=== PATIENT | female | born 1940 | race Caucasian/White ===

== ENCOUNTER 2016-11-26 08:46 | Outpatient (CLI) | payer MEDICARE, OTHER | END 2016-11-26 23:59 | disposition home or self-care (01) | LOC: RAD 08:46 | PROVIDERS: ATTEND Internal Medicine Cardiovascular Disease | DX: Z01.810 Encounter for preprocedural cardiovascular examination (principal); I50.32 Chronic diastolic (congestive) heart failure | CPT/HCPCS: 78452; A9502; J2785 ==

== ENCOUNTER 2022-06-04 21:25 | Emergency (ER) | payer BC, MEDICARE, OTHER ==
[~2022-06-04] VITALS: Ht 152.4 cm; Wt 74.8 kg
[2022-06-04] MEDS ORDERED: OXYMETAZOLINE HCL NASAL SPRAY 30 ML BOTTLE NS ONE ×2 (22:13→22:30)
--- NOTE | 2022-06-04 22:13 | NUR ---
C/O NOSEBLEED X 1HR, STATES TRIED PICKING ON THE NOSE AND BEEN BLEEDING. DENEIS BLOOD THINNERS. TO BED 2. NASAL CLIP APPLIED. A/OX4. MONITOR APPLIED.
[2022-06-04] MEDS ORDERED: TRANEXAMIC ACID 1,000 MG/10 ML VIAL ONE (23:35)
[2022-06-05] MEDS ORDERED: TRANEXAMIC ACID 1,000 MG/10 ML VIAL IR ONE
--- NOTE | 2022-06-05 00:35 | NUR ---
Patient does not wish to proceed with medical care recommended by Dr. Stiles. Patient given information related to possible complications, up to and including , which could occur as a result of leaving the hospital at this time. Patient verbalizes understanding of risks involved due to leaving against medical advice. Patient has signed AMA form.
[2022-06-05 00:36] VITALS: BP 145/90
== END 2022-06-05 00:36 | disposition home or self-care (01) ==
LOC: ER 21:26
DX: R04.0 Epistaxis (principal)

== ENCOUNTER 2022-11-02 11:32 | Inpatient (IN) | payer BC ==
[~2022-11-02] VITALS: Ht 154.9 cm; Wt 56.2 kg
[2022-11-02] MEDS ORDERED: IV NS 0.9% 1,000 ML BAG IV ONE ×2 (12:30→13:30)
[2022-11-02] MEDS ORDERED: MONT10TA22 PO (12:53)
[2022-11-02] MEDS ORDERED: DULO60CA64 PO (12:53)
[2022-11-02] MEDS ORDERED: OLME40TA18 PO (12:53)
[2022-11-02] MEDS ORDERED: CLON1PAT13 TP (12:53)
[2022-11-02] MEDS ORDERED: PANT40TA49 PO (12:53)
[2022-11-02 13:22] LABS: BASOPHILS % (AUTO) 0.2 % (0.0-2.0); EOSINOPHILS % (AUTO) 0.4 % (0.0-6.0); HEMATOCRIT 44 % (33-45); HEMOGLOBIN 14.9 g/dL (11.5-14.8); LYMPHOCYTES # (AUTO) 1.6 K/uL (0.8-4.8); LYMPHOCYTES % (AUTO) 17.1 % (20.0-44.0); MEAN CORPUSCULAR HEMOGLOBIN 27 PG (26.0-33.0); MEAN CORPUSCULAR HGB CONC 34 g/dl (31.0-36.0); MEAN CORPUSCULAR VOLUME 79 fL (82-100); MONOCYTES # (AUTO) 0.7 K/uL (0.1-1.30); MONOCYTES % (AUTO) 7.3 % (2.0-12.0); PLATELET COUNT (AUTO) 396 K/uL (150-450); RED BLOOD CELL COUNT(AUTO) 5.55 MIL/uL (4.0-5.2); RED CELL DISTRIBUTION WIDTH 13.6 % (11.5-15.0); WHITE BLOOD COUNT (AUTO) 9.3 K/uL (4.3-11.0)
[2022-11-02 13:26] LABS: SERUM AMMONIA 11 umol/L (11-32)
[2022-11-02 13:27] LABS: CALCIUM, SERUM 9.6 mg/dL (8.5-10.1); CARBON DIOXIDE 32 mmol/L (21-32); CHLORIDE 85 mmol/L (98-107); CREATININE 1.1 mg/dL (0.6-1.3); GLUCOSE 139 mg/dL (74-106); INR 1.03 (0.91-1.10); POTASSIUM 2.9 mmol/L (3.5-5.1); PROTHROMBIN TIME 10.8 SECS (9.2-11.1); SODIUM SERUM 125 mmol/L (136-145); UREA NITROGEN, BLOOD 26 mg/dL (7-18)
[2022-11-02 13:33] LABS: ALANINE AMINOTRANSFERASE 25 U/L (12-78); ALBUMIN 4.2 g/dL (3.4-5.0); ALKALINE PHOSPHATASE 148 U/L (46-116); ASPARTATE AMINOTRANSFERASE 37 U/L (15-37); BILIRUBIN,DIRECT 0.2 mg/dL (0.0-0.2); BILIRUBIN,TOTAL 0.8 mg/dL (0.2-1.0); TOTAL PROTEIN, SERUM 8.4 g/dL (6.4-8.2)
[2022-11-02 13:38] LABS: THYROID STIMULATING HORMONE 1.637 uIU/mL (0.358-3.74)
[2022-11-02] MEDS ORDERED: ASPI-1169 PO (13:39)
[2022-11-02] MEDS ORDERED: TERI2.4P SQ (13:39)
[2022-11-02 13:51] LABS: LACTIC ACID 2.6 mmol/L (0.4-2.0)
[2022-11-02 13:55] LABS: ACETAMINOPHEN 0 ug/ml (10-30); ALCOHOL, BLOOD < 3 mg/dL (0-10); SALICYLATE < 2.3 mg/dL (2.8-20.0)
[2022-11-02] MEDS ORDERED: IV PREMIX D5 1/2NS + KCL 1,000 ML IV ONE (14:00)
[2022-11-02 14:09] LABS: APPEARANCE,URINE CLEAR (CLEAR); BILIRUBIN,URINE NEGATIVE (NEGATIVE); BLOOD, URINE TRACE-INTA Ery/uL (NEGATIVE); COLOR,URINE YELLOW (YELLOW); KETONES,URINE 1+ mg/dL (NEGATIVE); LEUKOCYTE ESTERASE ,URINE NEGATIVE (NEGATIVE); NITRITE, URINE NEGATIVE (NEGATIVE); PROTEIN,URINE 2+ mg/dl (NEGATIVE); UGLUCOSE TRACE mg/dL (NEGATIVE); UROBILINOGEN,URINE 0.2 EU/dL (0.2)
[2022-11-02 14:17] LABS: AMPHETAMINE, URINE NEGATIVE (NEGATIVE); BARBITURATE, URINE NEGATIVE (NEGATIVE); BENZODIAZEPINE, URINE NEGATIVE (NEGATIVE); CANNABINOID, URINE NEGATIVE (NEGATIVE); COCCAINE, URINE NEGATIVE (NEGATIVE); OPIATE, URINE NEGATIVE (NEGATIVE); PHENCYCLIDINE SCREEN,URINE NEGATIVE (NEGATIVE)
[2022-11-02] MEDS ORDERED: ACETAMINOPHEN 325 MG TABLET PO PRN (14:30)
[2022-11-02 15:48] LABS: ADD URINE CULTURE NO; BACTERIA,URINE None seen /HPF (None Seen); SQUAMOUS EPITHELIAL CELL,UR 0-2 /HPF (None Seen); WBC,URINE 0-2 /HPF (0-3)
[2022-11-02] MEDS ORDERED: ENOXAPARIN SODIUM 30 MG/0.3 ML DISP.SYRIN SQ SCH (16:00)
[2022-11-02] MEDS: PANTOPRAZOLE 40 MG TABLET.DR PO SCH (16:30)
[2022-11-02] MEDS: IV NS 0.9% 1,000 ML IV SCH (16:51)
[2022-11-02 19:42] VITALS: BP 138/84; TEMP 97.5; O2SAT 91
[2022-11-02 20:00] VITALS: BP 156/89; TEMP 98; O2SAT 94
[2022-11-02 21:36] VITALS: BP 156/86; TEMP 98; O2SAT 94
[2022-11-02] MEDS: MORPHINE SULFATE INJ 2 MG/ML DISP.SYRIN IV PRN (22:12)
[2022-11-03] MEDS: MORPHINE SULFATE INJ 2 MG/ML DISP.SYRIN IV PRN ×2 (03:08→10:03)
[2022-11-03 03:49] VITALS: BP 162/83; TEMP 98.3; O2SAT 100
[2022-11-03] MEDS: IV NS 0.9% 1,000 ML IV SCH (04:08)
[2022-11-03 04:35] VITALS: BP 159/78; TEMP 98.4; O2SAT 98
[2022-11-03 06:27] LABS: BASOPHILS # (AUTO) 0.1 K/uL (0.0-0.2); BASOPHILS % (AUTO) 0.8 % (0.0-2.0); EOSINOPHILS # (AUTO) 0.3 K/uL (0.0-0.7); EOSINOPHILS % (AUTO) 3.8 % (0.0-6.0); HEMATOCRIT 37 % (33-45); LYMPHOCYTES # (AUTO) 2.5 K/uL (0.8-4.8); LYMPHOCYTES % (AUTO) 28.3 % (20.0-44.0); MEAN CORPUSCULAR HEMOGLOBIN 26 PG (26.0-33.0); MEAN CORPUSCULAR HGB CONC 32 g/dl (31.0-36.0); MEAN CORPUSCULAR VOLUME 81 fL (82-100); MONOCYTES # (AUTO) 0.8 K/uL (0.1-1.30); MONOCYTES % (AUTO) 8.9 % (2.0-12.0); NEUTROPHILS # (AUTO) 5.1 K/uL (1.8-8.9); NEUTROPHILS % (AUTO) 58.2 % (43.0-81.0); PLATELET COUNT (AUTO) 281 K/uL (150-450); RED BLOOD CELL COUNT(AUTO) 4.57 MIL/uL (4.0-5.2); RED CELL DISTRIBUTION WIDTH 13.6 % (11.5-15.0); WHITE BLOOD COUNT (AUTO) 8.7 K/uL (4.3-11.0)
[2022-11-03 06:51] LABS: ALBUMIN 3.1 g/dL (3.4-5.0); BILIRUBIN,TOTAL 0.7 mg/dL (0.2-1.0); CALCIUM, SERUM 8.6 mg/dL (8.5-10.1); CREATININE 0.6 mg/dL (0.6-1.3); PHOSPHORUS 2.3 mg/dL (2.5-4.9); POTASSIUM 3.2 mmol/L (3.5-5.1); TOTAL PROTEIN, SERUM 6.2 g/dL (6.4-8.2)
[2022-11-03 07:00] VITALS: BP 140/79; TEMP 97.9; O2SAT 96
[2022-11-03] MEDS: PANTOPRAZOLE 40 MG TABLET.DR PO SCH ×2 (07:30→15:45)
[2022-11-03] MEDS ORDERED: LOSARTAN POTASSIUM 50 MG TABLET PO SCH (09:00)
[2022-11-03] MEDS: MONTELUKAST SODIUM (10MG) 10 MG TABLET PO SCH (09:00)
[2022-11-03] MEDS: ASPIRIN 81 MG TAB.CHEW PO SCH (09:00)
[2022-11-03] MEDS: DULOXETINE HCL 30 MG CAPSULE.DR PO SCH (09:00)
[2022-11-03] MEDS ORDERED: POTASSIUM CHLORIDE 20 MEQ POWDER PACKET PO ONE (10:00)
[2022-11-03] MEDS ORDERED: POLY17PO4 PO (11:22)
[2022-11-03] MEDS ORDERED: L. R1CAP PO (11:22)
[2022-11-03] MEDS ORDERED: IPRA21SP NS (11:22)
[2022-11-03] MEDS ORDERED: SIMV-49 PO (11:22)
[2022-11-03] MEDS ORDERED: FLUC150T PO (11:22)
[2022-11-03] MEDS ORDERED: FISH1CAP16 PO (11:22)
[2022-11-03] MEDS ORDERED: CARB15DR56 EACHEYE (11:22)
[2022-11-03] MEDS ORDERED: HYDR-500 PO (11:22)
[2022-11-03] MEDS ORDERED: DOCU100C36 PO (11:22)
[2022-11-03] MEDS ORDERED: OXYC-133 PO (11:22)
[2022-11-03] MEDS ORDERED: BISA5TAB10 PO (11:22)
[2022-11-03] MEDS ORDERED: FEXO180T94 PO (11:22)
[2022-11-03] MEDS ORDERED: CHOL500052 PO (11:22)
[2022-11-03] MEDS ORDERED: LORA-259 PO (11:22)
[2022-11-03] MEDS ORDERED: MULT-754 PO (11:22)
[2022-11-03] MEDS ORDERED: PREG75CA PO (11:22)
[2022-11-03] MEDS ORDERED: L.AC1CAP6 PO (11:22)
[2022-11-03] MEDS ORDERED: SUCR1TAB PO (11:22)
[2022-11-03] MEDS ORDERED: ALPR0.25 PO (11:22)
[2022-11-03] MEDS ORDERED: IRON28TA4 PO (11:22)
[2022-11-03] MEDS ORDERED: MINERAL OIL EACHEYE (11:22)
[2022-11-03] MEDS ORDERED: METH5TAB2 PO (11:22)
[2022-11-03] MEDS ORDERED: Z GUARD REMEDY 4 OZ OINT TP PRN (12:00)
[2022-11-03] MEDS: ONDANSETRON HCL/PF 4 MG/2 ML VIAL IVP PRN (12:57)
[2022-11-03] MEDS: Z GUARD REMEDY 4 OZ OINT TP SCH (12:58)
[2022-11-03] MEDS: hydrALAZINE HCL IV 20 MG VIAL IV PRN (14:34)
[2022-11-03] MEDS: METHADONE HCL 10 MG TABLET PO SCH ×2 (15:22→23:37)
[2022-11-03] MEDS ORDERED: ALPRAZOLAM 0.25 MG TABLET PO PRN (15:30)
[2022-11-03 16:00] VITALS: BP 186/74; TEMP 99.1; O2SAT 97
[2022-11-03] MEDS ORDERED: NEUTRA PHOS 1 POWD.PACKET PO ONE (16:00)
[2022-11-03] MEDS: ALPRAZOLAM 0.25 MG TABLET PO PRN ×2 (16:07→23:04)
[2022-11-03 16:30] VITALS: BP 173/100; O2SAT 98
[2022-11-03] MEDS: ENOXAPARIN SODIUM 40 MG/0.4 ML DISP.SYRIN SQ SCH (17:54)
[2022-11-03 18:30] VITALS: BP 170/110; O2SAT 98
[2022-11-03] MEDS: LORAZEPAM 1 MG TABLET PO PRN (19:30)
[2022-11-03] MEDS ORDERED: oxyCODONE/APAP (5/325 MG) 1 UDTAB TABLET PO PRN (20:00)
[2022-11-03] MEDS ORDERED: DILTIAZEM HCL 25 MG IV IV ONE (20:30)
[2022-11-03] MEDS: PREGABALIN 25 MG CAPSULE PO SCH (20:30)
[2022-11-03] MEDS: oxyCODONE/APAP (5/325 MG) 1 UDTAB TABLET PO SCH (20:46)
[2022-11-03] MEDS ORDERED: PREGABALIN 25 MG CAPSULE PO SCH (21:00)
[2022-11-03] MEDS: IV NS 0.9% 1,000 ML IV PRN ×2 (21:22→23:11)
[2022-11-03] MEDS ORDERED: DILTIAZEM HCL IV 125 MG in IV NS 0.9% 100 ML IV PRN (23:00)
[2022-11-03] MEDS ORDERED: DILTIAZEM HCL 25 MG IV ONE ×2 (23:02→23:11)
[2022-11-03] MEDS: SIMVASTATIN 20 MG TABLET PO SCH (23:37)
[2022-11-04] VITALS: BP 145/90; TEMP 98.7; O2SAT 100
[2022-11-04] MEDS: hydrALAZINE HCL IV 20 MG VIAL IV PRN (01:20)
[2022-11-04] MEDS: MORPHINE SULFATE INJ 2 MG/ML DISP.SYRIN IV PRN (01:41)
[2022-11-04] MEDS: LORAZEPAM 1 MG TABLET PO PRN ×2 (02:10→22:02)
[2022-11-04 04:00] VITALS: BP 134/66; TEMP 98.4; O2SAT 99
[2022-11-04 08:00] VITALS: BP 163/84; TEMP 98.6; O2SAT 97
[2022-11-04] MEDS: PANTOPRAZOLE 40 MG TABLET.DR PO SCH ×2 (08:01→16:47)
[2022-11-04] MEDS: oxyCODONE/APAP (5/325 MG) 1 UDTAB TABLET PO SCH ×3 (08:01→16:52)
[2022-11-04] MEDS: PREGABALIN 25 MG CAPSULE PO SCH ×3 (08:01→16:55)
[2022-11-04] MEDS: LOSARTAN POTASSIUM 50 MG TABLET PO SCH ×3 (08:33→16:52)
[2022-11-04] MEDS: ASPIRIN 81 MG TAB.CHEW PO SCH (08:38)
[2022-11-04] MEDS: THERAHONEY GEL 1.5 OZ TUBE TP SCH (08:38)
[2022-11-04] MEDS: DULOXETINE HCL 30 MG CAPSULE.DR PO SCH (08:38)
[2022-11-04] MEDS: Z GUARD REMEDY 4 OZ OINT TP SCH (08:38)
[2022-11-04] MEDS: MONTELUKAST SODIUM (10MG) 10 MG TABLET PO SCH (08:39)
[2022-11-04] MEDS: METHADONE HCL 10 MG TABLET PO SCH ×3 (08:49→21:23)
[2022-11-04] MEDS ORDERED: METOPROLOL TARTRATE 25 MG TABLET PO SCH (09:00)
[2022-11-04] MEDS: ALPRAZOLAM 0.25 MG TABLET PO PRN (09:57)
[2022-11-04] MEDS: IV NS 0.9% 1,000 ML IV PRN (10:28)
[2022-11-04 11:15] LABS: CALCIUM, SERUM 9.2 mg/dL (8.5-10.1); CREATININE 0.6 mg/dL (0.6-1.3); MAGNESIUM 1.6 mg/dL (1.8-2.4); PHOSPHORUS 3.4 mg/dL (2.5-4.9); POTASSIUM 3.5 mmol/L (3.5-5.1)
[2022-11-04 11:45] LABS: THYROID STIMULATING HORMONE 1.813 uIU/mL (0.358-3.74); URIC ACID 2.9 mg/dL (2.6-7.2)
[2022-11-04 12:00] VITALS: BP 106/64; TEMP 98.6; O2SAT 98
[2022-11-04] MEDS ORDERED: IV D5/ 0.9% NACL 1,000 ML IV SCH (12:00)
[2022-11-04] MEDS: ENSURE ENLIVE CHOC 237 ML CAN PO SCH ×2 (15:00→17:21)
[2022-11-04 16:00] VITALS: BP 96/56; TEMP 97.7; O2SAT 97
[2022-11-04] MEDS: CARVEDILOL 12.5 MG TABLET PO SCH (16:47)
[2022-11-04] MEDS ORDERED: DULOXETINE HCL 30 MG CAPSULE.DR PO SCH (17:00)
[2022-11-04] MEDS: ENOXAPARIN SODIUM 40 MG/0.4 ML DISP.SYRIN SQ SCH (17:46)
[2022-11-04] MEDS: ONDANSETRON HCL/PF 4 MG/2 ML VIAL IVP PRN (18:11)
[2022-11-04] MEDS ORDERED: IV D5/ 0.9% NACL 1,000 ML IV PRN (18:42)
[2022-11-04] MEDS: MUPIROCIN OINT 2% 22 GM TUBE NS SCH (19:46)
[2022-11-04 20:00] VITALS: BP 105/65; TEMP 98.1; O2SAT 97
[2022-11-04] MEDS ORDERED: Magnesium 1GM/D5W 100ML PREMIX 100 ML IV SCH (21:00)
[2022-11-04] MEDS ORDERED: Magnesium 1GM/D5W 100ML PREMIX PIGGYBACK IV ONE (21:00)
[2022-11-04] MEDS: SIMVASTATIN 20 MG TABLET PO SCH (21:22)
[2022-11-04] MEDS ORDERED: MAGNESIUM HYDROXIDE 30 ML UDC PO PRN (23:00)
[2022-11-05] VITALS: BP 131/77; TEMP 98.2; O2SAT 95
[2022-11-05 04:00] VITALS: BP 145/81; TEMP 98; O2SAT 96
[2022-11-05] MEDS: MUPIROCIN OINT 2% 22 GM TUBE NS SCH (06:15)
[2022-11-05 07:24] LABS: BASOPHILS # (AUTO) 0.1 K/uL (0.0-0.2); BASOPHILS % (AUTO) 0.9 % (0.0-2.0); EOSINOPHILS # (AUTO) 0.3 K/uL (0.0-0.7); EOSINOPHILS % (AUTO) 3.1 % (0.0-6.0); HEMATOCRIT 35 % (33-45); HEMOGLOBIN 11.4 g/dL (11.5-14.8); LYMPHOCYTES # (AUTO) 2.5 K/uL (0.8-4.8); LYMPHOCYTES % (AUTO) 26.2 % (20.0-44.0); MEAN CORPUSCULAR HEMOGLOBIN 27 PG (26.0-33.0); MEAN CORPUSCULAR HGB CONC 33 g/dl (31.0-36.0); MEAN CORPUSCULAR VOLUME 81 fL (82-100); MONOCYTES # (AUTO) 0.8 K/uL (0.1-1.30); MONOCYTES % (AUTO) 7.9 % (2.0-12.0); NEUTROPHILS # (AUTO) 5.9 K/uL (1.8-8.9); NEUTROPHILS % (AUTO) 61.9 % (43.0-81.0); PLATELET COUNT (AUTO) 265 K/uL (150-450); RED CELL DISTRIBUTION WIDTH 13.4 % (11.5-15.0); WHITE BLOOD COUNT (AUTO) 9.6 K/uL (4.3-11.0)
[2022-11-05 07:43] LABS: ALANINE AMINOTRANSFERASE 17 U/L (12-78); ALBUMIN 2.8 g/dL (3.4-5.0); ALKALINE PHOSPHATASE 102 U/L (46-116); ASPARTATE AMINOTRANSFERASE 21 U/L (15-37); BILIRUBIN,TOTAL 0.7 mg/dL (0.2-1.0); CALCIUM, SERUM 8.2 mg/dL (8.5-10.1); CARBON DIOXIDE 27 mmol/L (21-32); CHLORIDE 93 mmol/L (98-107); CREATININE 0.6 mg/dL (0.6-1.3); GLUCOSE 122 mg/dL (74-106); MAGNESIUM 1.8 mg/dL (1.8-2.4); PHOSPHORUS 2.5 mg/dL (2.5-4.9); SODIUM SERUM 128 mmol/L (136-145); TOTAL PROTEIN, SERUM 5.6 g/dL (6.4-8.2); UREA NITROGEN, BLOOD 20 mg/dL (7-18)
[2022-11-05 08:00] VITALS: BP 137/63; TEMP 98; O2SAT 96
[2022-11-05] MEDS: PREGABALIN 25 MG CAPSULE PO SCH ×2 (08:51→12:03)
[2022-11-05] MEDS: ASPIRIN 81 MG TAB.CHEW PO SCH (08:51)
[2022-11-05 08:52] VITALS: BP 137/63
[2022-11-05] MEDS: DULOXETINE HCL 30 MG CAPSULE.DR PO SCH ×2 (08:52→09:00)
[2022-11-05] MEDS: LOSARTAN POTASSIUM 50 MG TABLET PO SCH (08:52)
[2022-11-05] MEDS: oxyCODONE/APAP (5/325 MG) 1 UDTAB TABLET PO SCH ×2 (08:52→12:03)
[2022-11-05] MEDS: CARVEDILOL 12.5 MG TABLET PO SCH (08:52)
[2022-11-05] MEDS: MONTELUKAST SODIUM (10MG) 10 MG TABLET PO SCH (08:52)
[2022-11-05] MEDS: ENSURE ENLIVE CHOC 237 ML CAN PO SCH (08:53)
[2022-11-05] MEDS: THERAHONEY GEL 1.5 OZ TUBE TP SCH (08:53)
[2022-11-05] MEDS: METHADONE HCL 10 MG TABLET PO SCH (08:53)
[2022-11-05] MEDS: Z GUARD REMEDY 4 OZ OINT TP SCH (08:53)
[2022-11-05] MEDS: PANTOPRAZOLE 40 MG TABLET.DR PO SCH (08:56)
[2022-11-05] MEDS ORDERED: POTASSIUM CHLORIDE 20 MEQ TAB.PRT.SR PO ONE (09:30)
[2022-11-05] MEDS ORDERED: BISACODYL SUPP (10 MG) 10 MG/SUPP.RECT SUPP.RECT RC PRN (09:30)
[2022-11-05] MEDS: POTASSIUM CL. PREMIX PERIPHER. 50 ML IV SCH ×2 (09:44→10:45)
[2022-11-05] MEDS ORDERED: DULO30CA2 PO (11:15)
== END 2022-11-05 12:54 | disposition home health service (06) | DRG 640 ==
LOC: ER 11:34 → TELE 15:28 → TELE1 11-03 22:28 → TELE-TD 11-03 22:50 → TELE1 11-04 09:44
PROVIDERS: ADMIT Internal Medicine
DX: E86.0 Dehydration (principal); I21.A1 Myocardial infarction type 2; D68.69 Other thrombophilia; N17.9 Acute kidney failure, unspecified; I48.91 Unspecified atrial fibrillation; E87.1 Hypo-osmolality and hyponatremia; E87.20 Acidosis, unspecified; E86.1 Hypovolemia; E87.6 Hypokalemia; I95.89 Other hypotension; M06.9 Rheumatoid arthritis, unspecified; R13.10 Dysphagia, unspecified; Z79.82 Long term (current) use of aspirin; R53.1 Weakness; I95.9 Hypotension, unspecified; I10 Essential (primary) hypertension; M20.62 Acquired deformities of toe(s), unspecified, left foot; M20.61 Acquired deformities of toe(s), unspecified, right foot; S81.802A Unspecified open wound, left lower leg, initial encounter; X58.XXXA Exposure to other specified factors, initial encounter; Y93.9 Activity, unspecified; Y92.009 Unspecified place in unspecified non-institutional (private) residence as the place of occurrence of the external cause; L85.9 Epidermal thickening, unspecified; M96.1 Postlaminectomy syndrome, not elsewhere classified; F43.22 Adjustment disorder with anxiety; I35.1 Nonrheumatic aortic (valve) insufficiency; S90.122A Contusion of left lesser toe(s) without damage to nail, initial encounter; S90.121A Contusion of right lesser toe(s) without damage to nail, initial encounter; D64.9 Anemia, unspecified; Z98.1 Arthrodesis status; M81.0 Age-related osteoporosis without current pathological fracture; K21.9 Gastro-esophageal reflux disease without esophagitis
CPT/HCPCS: 36415; 70450-TC; 71045-TC; 80048-TC; 80053-TC; 80076-TC; 81001; 82140-TC; 82533; 82962-TC; 83605-TC; 83735-TC; 84100-TC; 84443-TC; 84484-TC; 84550-TC; 85025-TC; 85730-TC; 87040-TC; 87081-TC; 87086-TC; 92526; 92611-TC; 93307-TC; 97110-TC; 97112-TC; 97530-TC; A4223; A4623; G0378; G0480; J0360; J1650; J2270; J2405; J3475; J3480; J3490; J7030; J7042; J7050

== ENCOUNTER 2022-12-29 14:19 | Inpatient (IN) | payer BC ==
[~2022-12-29] VITALS: Ht 152.4 cm; Wt 59.4 kg
[~2022-12-29 14:19] MED LIST: ALPR0.25 PO; ASPI-1169 PO; BISA5TAB10 PO; CARB15DR56 EACHEYE; CHOL500052 PO; DOCU100C36 PO; DULO30CA2 PO; FEXO180T94 PO; FISH1CAP16 PO; HYDR-500 PO; IPRA21SP NS; IRON28TA4 PO; L.AC1CAP6 PO; METH5TAB2 PO; MONT10TA22 PO; MULT-754 PO; OXYC-133 PO; PANT40TA49 PO; POLY17PO4 PO; PREG75CA PO; SIMV-49 PO; SUCR1TAB PO
[2022-12-29] MEDS ORDERED: ONDANSETRON HCL/PF 4 MG/2 ML VIAL IVP ONE (14:30)
[2022-12-29] MEDS ORDERED: IV NS 0.9% 500 ML BAG IV ONE (14:30)
[2022-12-29] MEDS ORDERED: MORPHINE SULFATE INJ 2 MG/ML DISP.SYRIN IV ONE ×2 (14:30→16:30)
[2022-12-29] MEDS ORDERED: ONDANSETRON HCL/PF 4 MG/2 ML VIAL ONE (14:34)
[2022-12-29] MEDS ORDERED: MORPHINE SULFATE INJ 4 MG/ML DISP.SYRIN ONE ×2 (14:35→16:29)
[2022-12-29 15:23] LABS: BASOPHILS # (AUTO) 0.1 K/uL (0.0-0.2); BASOPHILS % (AUTO) 0.7 % (0.0-2.0); EOSINOPHILS % (AUTO) 0.2 % (0.0-6.0); HEMATOCRIT 41 % (33-45); LYMPHOCYTES # (AUTO) 2.6 K/uL (0.8-4.8); LYMPHOCYTES % (AUTO) 19.3 % (20.0-44.0); MEAN CORPUSCULAR HEMOGLOBIN 27 PG (26.0-33.0); MEAN CORPUSCULAR HGB CONC 32 g/dl (31.0-36.0); MEAN CORPUSCULAR VOLUME 84 fL (82-100); MONOCYTES # (AUTO) 0.5 K/uL (0.1-1.30); MONOCYTES % (AUTO) 3.4 % (2.0-12.0); NEUTROPHILS # (AUTO) 10.2 K/uL (1.8-8.9); NEUTROPHILS % (AUTO) 76.4 % (43.0-81.0); PLATELET COUNT (AUTO) 358 K/uL (150-450); RED BLOOD CELL COUNT(AUTO) 4.82 MIL/uL (4.0-5.2); WHITE BLOOD COUNT (AUTO) 13.3 K/uL (4.3-11.0)
[2022-12-29 15:41] LABS: ALANINE AMINOTRANSFERASE 20 U/L (12-78); ALBUMIN 4.1 g/dL (3.4-5.0); ALKALINE PHOSPHATASE 144 U/L (46-116); ASPARTATE AMINOTRANSFERASE 18 U/L (15-37); BILIRUBIN,DIRECT 0.2 mg/dL (0.0-0.2); BILIRUBIN,TOTAL 0.5 mg/dL (0.2-1.0); CALCIUM, SERUM 9.8 mg/dL (8.5-10.1); CARBON DIOXIDE 16 mmol/L (21-32); CHLORIDE 92 mmol/L (98-107); CREATININE 0.9 mg/dL (0.6-1.3); GLUCOSE 317 mg/dL (74-106); LIPASE 41 U/L (16-77); SODIUM SERUM 130 mmol/L (136-145); TOTAL PROTEIN, SERUM 7.9 g/dL (6.4-8.2); UREA NITROGEN, BLOOD 7 mg/dL (7-18)
[2022-12-29 16:11] LABS: POTASSIUM 2.6 mmol/L (3.5-5.1)
[2022-12-29 16:23] LABS: APPEARANCE,URINE CLEAR (CLEAR); BILIRUBIN,URINE NEGATIVE (NEGATIVE); BLOOD, URINE NEGATIVE Ery/uL (NEGATIVE); COLOR,URINE YELLOW (YELLOW); KETONES,URINE 1+ mg/dL (NEGATIVE); LEUKOCYTE ESTERASE ,URINE NEGATIVE (NEGATIVE); NITRITE, URINE NEGATIVE (NEGATIVE); PH,URINE 7.5 (5.0-8.0); PROTEIN,URINE TRACE mg/dl (NEGATIVE); UGLUCOSE 2+ mg/dL (NEGATIVE); UROBILINOGEN,URINE 0.2 EU/dL (0.2)
[2022-12-29] MEDS ORDERED: POTASSIUM CL. PREMIX PERIPHER. 50 ML ONE ×2 (16:33→17:29)
[2022-12-29] MEDS: POTASSIUM CL. PREMIX PERIPHER. 50 ML IV SCH ×2 (16:43→17:31)
[2022-12-29] MEDS ORDERED: ONDA8TAB65 PO (16:52)
[2022-12-29] MEDS ORDERED: RIFA300C4 PO (16:52)
[2022-12-29] MEDS ORDERED: TERI2.4P SQ (16:52)
[2022-12-29] MEDS ORDERED: ERGO500093 PO (16:52)
[2022-12-29] MEDS ORDERED: PANTOPRAZOLE 40 MG VIAL IV ONE (17:30)
[2022-12-29] MEDS ORDERED: PANTOPRAZOLE 40 MG VIAL ONE (17:33)
[2022-12-29 17:52] LABS: ADD URINE CULTURE NO; BACTERIA,URINE None seen /HPF (None Seen); RBC,URINE 0-2 /HPF (0-2); SQUAMOUS EPITHELIAL CELL,UR 0-2 /HPF (None Seen); WBC,URINE 0-2 /HPF (0-3)
[2022-12-29] MEDS ORDERED: ACETAMINOPHEN 325 MG TABLET PO PRN (18:00)
[2022-12-29] MEDS ORDERED: POLYVINYL ALCOHOL 15 ML BOTTLE EACHEYE PRN (18:00)
[2022-12-29] MEDS ORDERED: Z GUARD REMEDY 4 OZ OINT TP PRN (18:00)
[2022-12-29] MEDS ORDERED: SUCRALFATE 1 G TABLET PO PRN (18:00)
[2022-12-29] MEDS ORDERED: IV NS 0.9% 1,000 ML IV PRN (18:00)
[2022-12-29] MEDS ORDERED: MAGNESIUM HYDROXIDE 30 ML UDC PO PRN ×3 (18:00→23:30)
[2022-12-29] MEDS ORDERED: MAG HYDROX/AL HYDROX/SIMETH 30 ML UDC PO PRN (18:00)
[2022-12-29] MEDS ORDERED: ERGOCALCIFEROL (VITAMIN D 2) 50,000 UNIT CAPSULE PO SCH (18:00)
[2022-12-29] MEDS: BISACODYL (5 MG) 5 MG TABLET.DR PO SCH (18:00)
[2022-12-29 20:00] VITALS: BP 203/103; TEMP 98.1; O2SAT 96
[2022-12-29] MEDS: oxyCODONE/APAP (5/325 MG) 1 UDTAB TABLET PO PRN (20:12)
[2022-12-29] MEDS: MONTELUKAST SODIUM (10MG) 10 MG TABLET PO SCH (22:00)
[2022-12-29] MEDS: SIMVASTATIN 20 MG TABLET PO SCH (22:00)
[2022-12-29] MEDS ORDERED: LORAZEPAM INJ 2 MG/ML VIAL IV ONE (23:00)
[2022-12-29] MEDS: MAG HYDROX/AL HYDROX/SIMETH 30 ML UDC PO PRN (23:21)
[2022-12-30] VITALS (7 sets, daily range): BP systolic 165–179; BP diastolic 82–96; TEMP 98.4–99.5; O2SAT 96–98
[2022-12-30] MEDS: MORPHINE SULFATE INJ 4 MG/ML DISP.SYRIN IV PRN ×5 (01:34→20:47)
[2022-12-30] MEDS: ONDANSETRON HCL/PF 4 MG/2 ML VIAL IVP PRN (02:06)
[2022-12-30] MEDS: oxyCODONE/APAP (5/325 MG) 1 UDTAB TABLET PO PRN ×2 (04:29→12:23)
[2022-12-30] MEDS: MAG HYDROX/AL HYDROX/SIMETH 30 ML UDC PO PRN ×5 (04:37→19:45)
[2022-12-30 07:42] LABS: BASOPHILS % (AUTO) 0.1 % (0.0-2.0); HEMATOCRIT 42 % (33-45); HEMOGLOBIN 13.4 g/dL (11.5-14.8); LYMPHOCYTES # (AUTO) 1.5 K/uL (0.8-4.8); LYMPHOCYTES % (AUTO) 10.8 % (20.0-44.0); MEAN CORPUSCULAR HEMOGLOBIN 27 PG (26.0-33.0); MEAN CORPUSCULAR HGB CONC 32 g/dl (31.0-36.0); MEAN CORPUSCULAR VOLUME 83 fL (82-100); MONOCYTES # (AUTO) 0.9 K/uL (0.1-1.30); MONOCYTES % (AUTO) 6.5 % (2.0-12.0); NEUTROPHILS # (AUTO) 11.5 K/uL (1.8-8.9); NEUTROPHILS % (AUTO) 82.6 % (43.0-81.0); PLATELET COUNT (AUTO) 338 K/uL (150-450); RED BLOOD CELL COUNT(AUTO) 4.99 MIL/uL (4.0-5.2); RED CELL DISTRIBUTION WIDTH 15.3 % (11.5-15.0); WHITE BLOOD COUNT (AUTO) 13.9 K/uL (4.3-11.0)
[2022-12-30] MEDS: PANTOPRAZOLE 40 MG TABLET.DR PO SCH (07:49)
[2022-12-30 08:02] LABS: CALCIUM, SERUM 9.2 mg/dL (8.5-10.1); CARBON DIOXIDE 24 mmol/L (21-32); CHLORIDE 92 mmol/L (98-107); CREATININE 0.5 mg/dL (0.6-1.3); GLUCOSE 150 mg/dL (74-106); MAGNESIUM 1.8 mg/dL (1.8-2.4); PHOSPHORUS 3.1 mg/dL (2.5-4.9); SODIUM SERUM 129 mmol/L (136-145); UREA NITROGEN, BLOOD 9 mg/dL (7-18)
[2022-12-30 08:27] LABS: POTASSIUM 2.6 mmol/L (3.5-5.1)
[2022-12-30] MEDS ORDERED: POTASSIUM CHLORIDE 20 MEQ TAB.PRT.SR PO ONE (09:00)
[2022-12-30] MEDS: FEXOFENADINE HCL (60 MG) 60 MG TABLET PO SCH (09:07)
[2022-12-30] MEDS: ACIDOPHILUS/BULGARICUS 1 EACH TAB.CHEW PO SCH (09:07)
[2022-12-30] MEDS: hydrOXYzine PAMOATE 25 MG CAPSULE PO SCH ×3 (09:08→17:50)
[2022-12-30] MEDS: ASPIRIN 81 MG TAB.CHEW PO SCH (09:08)
[2022-12-30] MEDS: METHADONE HCL 10 MG TABLET PO SCH ×3 (09:08→17:49)
[2022-12-30] MEDS: RIFAMPIN 300 MG CAPSULE PO SCH (09:08)
[2022-12-30] MEDS: MULTIVITAMINS,THERAGRAN 1 UDTAB TABLET PO SCH (09:08)
[2022-12-30] MEDS: DOCUSATE SODIUM 100 MG CAPSULE PO SCH ×2 (09:09→17:49)
[2022-12-30] MEDS: DULOXETINE HCL 30 MG CAPSULE.DR PO SCH ×2 (09:09→17:49)
[2022-12-30] MEDS: POLYETHYLENE GLYCOL 3350 17 GM POWD.PACK PO SCH (09:09)
[2022-12-30] MEDS: PREGABALIN 25 MG CAPSULE PO SCH ×3 (09:10→17:49)
[2022-12-30] MEDS ORDERED: Potassium Chloride 40 MEQ in IV NS 0.9% 1,000 ML IV PRN (10:42)
[2022-12-30] MEDS: SUCRALFATE 1 G/10 ML UDC GT SCH ×3 (11:17→22:08)
[2022-12-30] MEDS: BISACODYL (5 MG) 5 MG TABLET.DR PO SCH (17:50)
[2022-12-30] MEDS: MONTELUKAST SODIUM (10MG) 10 MG TABLET PO SCH (22:08)
[2022-12-30] MEDS: SIMVASTATIN 20 MG TABLET PO SCH (22:08)
[2022-12-31] VITALS: BP_SYST 175; BP_SYST 182; BP_DIAS 92; BP_DIAS 94; TEMP 97.7; TEMP 98.4; O2SAT 95; O2SAT 99
[2022-12-31] MEDS: MORPHINE SULFATE INJ 4 MG/ML DISP.SYRIN IV PRN ×5 (01:06→23:20)
[2022-12-31 04:00] VITALS: BP 189/99; TEMP 98.2; O2SAT 96
[2022-12-31] MEDS: Potassium Chloride 40 MEQ in IV NS 0.9% 1,000 ML IV SCH ×2 (07:36→21:06)
[2022-12-31 08:00] VITALS: BP 171/90; TEMP 98.8; O2SAT 96
[2022-12-31] MEDS: MAG HYDROX/AL HYDROX/SIMETH 30 ML UDC PO PRN (08:32)
[2022-12-31] MEDS: METHADONE HCL 10 MG TABLET PO SCH ×3 (08:35→17:04)
[2022-12-31] MEDS: POLYETHYLENE GLYCOL 3350 17 GM POWD.PACK PO SCH (08:38)
[2022-12-31] MEDS: RIFAMPIN 300 MG CAPSULE PO SCH (08:38)
[2022-12-31] MEDS: PREGABALIN 25 MG CAPSULE PO SCH ×3 (08:39→17:07)
[2022-12-31] MEDS: DULOXETINE HCL 30 MG CAPSULE.DR PO SCH ×2 (08:39→17:07)
[2022-12-31] MEDS: MULTIVITAMINS,THERAGRAN 1 UDTAB TABLET PO SCH (08:39)
[2022-12-31] MEDS: ACIDOPHILUS/BULGARICUS 1 EACH TAB.CHEW PO SCH (08:39)
[2022-12-31] MEDS: PANTOPRAZOLE 40 MG TABLET.DR PO SCH (08:39)
[2022-12-31] MEDS: hydrOXYzine PAMOATE 25 MG CAPSULE PO SCH ×3 (08:39→17:07)
[2022-12-31] MEDS: DOCUSATE SODIUM 100 MG CAPSULE PO SCH ×2 (08:39→17:06)
[2022-12-31] MEDS: ASPIRIN 81 MG TAB.CHEW PO SCH (08:40)
[2022-12-31] MEDS: FEXOFENADINE HCL (60 MG) 60 MG TABLET PO SCH (09:00)
[2022-12-31 09:35] LABS: BASOPHILS # (AUTO) 0.1 K/uL (0.0-0.2); BASOPHILS % (AUTO) 1.1 % (0.0-2.0); EOSINOPHILS # (AUTO) 0.3 K/uL (0.0-0.7); EOSINOPHILS % (AUTO) 2.3 % (0.0-6.0); HEMATOCRIT 40 % (33-45); LYMPHOCYTES # (AUTO) 2.3 K/uL (0.8-4.8); LYMPHOCYTES % (AUTO) 19.9 % (20.0-44.0); MEAN CORPUSCULAR HEMOGLOBIN 27 PG (26.0-33.0); MEAN CORPUSCULAR HGB CONC 32 g/dl (31.0-36.0); MEAN CORPUSCULAR VOLUME 83 fL (82-100); MONOCYTES # (AUTO) 0.9 K/uL (0.1-1.30); MONOCYTES % (AUTO) 7.9 % (2.0-12.0); NEUTROPHILS # (AUTO) 7.8 K/uL (1.8-8.9); NEUTROPHILS % (AUTO) 68.8 % (43.0-81.0); PLATELET COUNT (AUTO) 321 K/uL (150-450); RED BLOOD CELL COUNT(AUTO) 4.88 MIL/uL (4.0-5.2); RED CELL DISTRIBUTION WIDTH 15.6 % (11.5-15.0); WHITE BLOOD COUNT (AUTO) 11.4 K/uL (4.3-11.0)
[2022-12-31] MEDS: oxyCODONE/APAP (5/325 MG) 1 UDTAB TABLET PO PRN ×2 (09:36→21:01)
[2022-12-31 09:48] LABS: ALANINE AMINOTRANSFERASE 23 U/L (12-78); ALBUMIN 3.4 g/dL (3.4-5.0); ALKALINE PHOSPHATASE 112 U/L (46-116); ASPARTATE AMINOTRANSFERASE 23 U/L (15-37); BILIRUBIN,TOTAL 0.5 mg/dL (0.2-1.0); CALCIUM, SERUM 8.7 mg/dL (8.5-10.1); CARBON DIOXIDE 26 mmol/L (21-32); CHLORIDE 95 mmol/L (98-107); CREATININE 0.5 mg/dL (0.6-1.3); GLUCOSE 139 mg/dL (74-106); PHOSPHORUS 2.2 mg/dL (2.5-4.9); POTASSIUM 3.9 mmol/L (3.5-5.1); SODIUM SERUM 129 mmol/L (136-145); TOTAL PROTEIN, SERUM 7.2 g/dL (6.4-8.2); UREA NITROGEN, BLOOD 14 mg/dL (7-18)
[2022-12-31] MEDS ORDERED: hydrALAZINE HCL IV 20 MG VIAL IV PRN (11:30)
[2022-12-31] MEDS: SUCRALFATE 1 G TABLET PO SCH ×3 (12:26→21:56)
[2022-12-31] MEDS: ONDANSETRON HCL/PF 4 MG/2 ML VIAL IVP PRN ×2 (12:33→18:44)
[2022-12-31 16:00] VITALS: BP 161/100; TEMP 98.6; O2SAT 98
[2022-12-31] MEDS ORDERED: NEUTRA PHOS 1 POWD.PACKET PO ONE (16:00)
[2022-12-31] MEDS: BISACODYL (5 MG) 5 MG TABLET.DR PO SCH (17:07)
[2022-12-31 20:00] VITALS: BP 139/86; TEMP 99.3; O2SAT 98
[2022-12-31] MEDS: MONTELUKAST SODIUM (10MG) 10 MG TABLET PO SCH (21:56)
[2022-12-31] MEDS: SIMVASTATIN 20 MG TABLET PO SCH (21:56)
[2023-01-01] VITALS: BP 105/70; TEMP 98.2; O2SAT 95
[2023-01-01] MEDS: MAG HYDROX/AL HYDROX/SIMETH 30 ML UDC PO PRN ×2 (01:46→09:45)
[2023-01-01] MEDS: MORPHINE SULFATE INJ 4 MG/ML DISP.SYRIN IV PRN ×4 (03:55→20:05)
[2023-01-01 04:00] VITALS: BP 157/96; TEMP 97.5; O2SAT 96
[2023-01-01 06:43] LABS: BASOPHILS # (AUTO) 0.1 K/uL (0.0-0.2); BASOPHILS % (AUTO) 0.6 % (0.0-2.0); EOSINOPHILS # (AUTO) 0.1 K/uL (0.0-0.7); EOSINOPHILS % (AUTO) 0.9 % (0.0-6.0); HEMATOCRIT 44 % (33-45); HEMOGLOBIN 14.2 g/dL (11.5-14.8); LYMPHOCYTES % (AUTO) 16.6 % (20.0-44.0); MEAN CORPUSCULAR HEMOGLOBIN 27 PG (26.0-33.0); MEAN CORPUSCULAR HGB CONC 32 g/dl (31.0-36.0); MEAN CORPUSCULAR VOLUME 83 fL (82-100); MONOCYTES % (AUTO) 8.5 % (2.0-12.0); NEUTROPHILS % (AUTO) 73.4 % (43.0-81.0); PLATELET COUNT (AUTO) 356 K/uL (150-450); RED BLOOD CELL COUNT(AUTO) 5.28 MIL/uL (4.0-5.2); RED CELL DISTRIBUTION WIDTH 15.2 % (11.5-15.0); WHITE BLOOD COUNT (AUTO) 12.3 K/uL (4.3-11.0)
[2023-01-01 06:57] LABS: CALCIUM, SERUM 8.6 mg/dL (8.5-10.1); CARBON DIOXIDE 24 mmol/L (21-32); CHLORIDE 92 mmol/L (98-107); CREATININE 0.5 mg/dL (0.6-1.3); GLUCOSE 129 mg/dL (74-106); MAGNESIUM 2.5 mg/dL (1.8-2.4); PHOSPHORUS 3.2 mg/dL (2.5-4.9); POTASSIUM 3.4 mmol/L (3.5-5.1); SODIUM SERUM 127 mmol/L (136-145); UREA NITROGEN, BLOOD 17 mg/dL (7-18)
[2023-01-01] MEDS: PANTOPRAZOLE 40 MG TABLET.DR PO SCH (07:43)
[2023-01-01] MEDS: SUCRALFATE 1 G TABLET PO SCH ×4 (07:44→22:32)
[2023-01-01 08:00] VITALS: BP 142/95; TEMP 97.3; O2SAT 97
[2023-01-01] MEDS: PREGABALIN 25 MG CAPSULE PO SCH ×3 (08:42→16:23)
[2023-01-01] MEDS: hydrOXYzine PAMOATE 25 MG CAPSULE PO SCH ×3 (08:42→16:23)
[2023-01-01] MEDS: ASPIRIN 81 MG TAB.CHEW PO SCH (08:42)
[2023-01-01] MEDS: ACIDOPHILUS/BULGARICUS 1 EACH TAB.CHEW PO SCH (08:42)
[2023-01-01] MEDS: MULTIVITAMINS,THERAGRAN 1 UDTAB TABLET PO SCH (08:42)
[2023-01-01] MEDS: METHADONE HCL 10 MG TABLET PO SCH ×3 (08:43→16:23)
[2023-01-01] MEDS: DOCUSATE SODIUM 100 MG CAPSULE PO SCH ×2 (08:43→16:23)
[2023-01-01] MEDS: DULOXETINE HCL 30 MG CAPSULE.DR PO SCH ×2 (08:43→16:23)
[2023-01-01] MEDS: RIFAMPIN 300 MG CAPSULE PO SCH (08:43)
[2023-01-01] MEDS: FEXOFENADINE HCL (60 MG) 60 MG TABLET PO SCH (08:47)
[2023-01-01] MEDS: POLYETHYLENE GLYCOL 3350 17 GM POWD.PACK PO SCH (08:54)
[2023-01-01] MEDS: Potassium Chloride 40 MEQ in IV NS 0.9% 1,000 ML IV SCH ×2 (09:54→23:11)
[2023-01-01] MEDS ORDERED: ANESTHESIA TRAY IN PYXIS 1 EA TRAY MC ONE ×2 (14:46→18:31)
[2023-01-01] MEDS: BISACODYL (5 MG) 5 MG TABLET.DR PO SCH (17:04)
[2023-01-01] MEDS ORDERED: FENTANYL PF 100MCG/2ML AMPUL ONE (17:32)
[2023-01-01 20:54] VITALS: BP 171/91; TEMP 97.7; O2SAT 98
[2023-01-01] MEDS: SIMVASTATIN 20 MG TABLET PO SCH (22:32)
[2023-01-01] MEDS: MONTELUKAST SODIUM (10MG) 10 MG TABLET PO SCH (22:32)
[2023-01-01 22:56] VITALS: BP 159/56
[2023-01-02 00:47] VITALS: BP 142/86; TEMP 99.5; O2SAT 98
[2023-01-02] MEDS: oxyCODONE/APAP (5/325 MG) 1 UDTAB TABLET PO PRN (01:07)
[2023-01-02] MEDS: MAG HYDROX/AL HYDROX/SIMETH 30 ML UDC PO PRN ×3 (03:50→16:58)
[2023-01-02] MEDS: MORPHINE SULFATE INJ 4 MG/ML DISP.SYRIN IV PRN (04:05)
[2023-01-02 06:04] LABS: BASOPHILS % (AUTO) 0.5 % (0.0-2.0); EOSINOPHILS # (AUTO) 0.2 K/uL (0.0-0.7); EOSINOPHILS % (AUTO) 1.7 % (0.0-6.0); HEMATOCRIT 41 % (33-45); HEMOGLOBIN 13.7 g/dL (11.5-14.8); LYMPHOCYTES # (AUTO) 1.5 K/uL (0.8-4.8); LYMPHOCYTES % (AUTO) 14.2 % (20.0-44.0); MEAN CORPUSCULAR HEMOGLOBIN 28 PG (26.0-33.0); MEAN CORPUSCULAR HGB CONC 34 g/dl (31.0-36.0); MEAN CORPUSCULAR VOLUME 82 fL (82-100); MONOCYTES # (AUTO) 0.7 K/uL (0.1-1.30); MONOCYTES % (AUTO) 6.5 % (2.0-12.0); NEUTROPHILS # (AUTO) 8.3 K/uL (1.8-8.9); NEUTROPHILS % (AUTO) 77.1 % (43.0-81.0); PLATELET COUNT (AUTO) 343 K/uL (150-450); RED BLOOD CELL COUNT(AUTO) 4.96 MIL/uL (4.0-5.2); RED CELL DISTRIBUTION WIDTH 15.3 % (11.5-15.0); WHITE BLOOD COUNT (AUTO) 10.7 K/uL (4.3-11.0)
[2023-01-02 06:13] LABS: ALANINE AMINOTRANSFERASE 21 U/L (12-78); ALBUMIN 3.3 g/dL (3.4-5.0); ALKALINE PHOSPHATASE 109 U/L (46-116); ASPARTATE AMINOTRANSFERASE 22 U/L (15-37); BILIRUBIN,TOTAL 0.6 mg/dL (0.2-1.0); CALCIUM, SERUM 8.4 mg/dL (8.5-10.1); CARBON DIOXIDE 21 mmol/L (21-32); CHLORIDE 94 mmol/L (98-107); CREATININE 0.5 mg/dL (0.6-1.3); GLUCOSE 134 mg/dL (74-106); MAGNESIUM 2.3 mg/dL (1.8-2.4); PHOSPHORUS 2.9 mg/dL (2.5-4.9); POTASSIUM 3.7 mmol/L (3.5-5.1); SODIUM SERUM 128 mmol/L (136-145); TOTAL PROTEIN, SERUM 6.9 g/dL (6.4-8.2); UREA NITROGEN, BLOOD 21 mg/dL (7-18)
[2023-01-02] MEDS: SUCRALFATE 1 G TABLET PO SCH ×2 (07:30→12:15)
[2023-01-02] MEDS: PANTOPRAZOLE 40 MG TABLET.DR PO SCH (07:30)
[2023-01-02 08:00] VITALS: BP 156/112; TEMP 97.5; O2SAT 96
[2023-01-02] MEDS: DULOXETINE HCL 30 MG CAPSULE.DR PO SCH ×2 (09:00→16:39)
[2023-01-02] MEDS: FEXOFENADINE HCL (60 MG) 60 MG TABLET PO SCH (09:00)
[2023-01-02] MEDS: MULTIVITAMINS,THERAGRAN 1 UDTAB TABLET PO SCH (09:00)
[2023-01-02] MEDS: hydrOXYzine PAMOATE 25 MG CAPSULE PO SCH ×3 (09:00→16:40)
[2023-01-02] MEDS: ASPIRIN 81 MG TAB.CHEW PO SCH (09:00)
[2023-01-02] MEDS: DOCUSATE SODIUM 100 MG CAPSULE PO SCH ×2 (09:00→16:39)
[2023-01-02] MEDS: PREGABALIN 25 MG CAPSULE PO SCH ×3 (09:00→16:38)
[2023-01-02] MEDS: METHADONE HCL 10 MG TABLET PO SCH ×3 (09:00→16:38)
[2023-01-02] MEDS: POLYETHYLENE GLYCOL 3350 17 GM POWD.PACK PO SCH (09:00)
[2023-01-02] MEDS: ACIDOPHILUS/BULGARICUS 1 EACH TAB.CHEW PO SCH (09:00)
[2023-01-02] MEDS: RIFAMPIN 300 MG CAPSULE PO SCH (09:00)
[2023-01-02] MEDS ORDERED: LORAZEPAM INJ 2 MG/ML VIAL IV ONE (09:30)
[2023-01-02 13:00] VITALS: BP 156/97; TEMP 97.8; O2SAT 98
[2023-01-02] MEDS: Potassium Chloride 40 MEQ in IV NS 0.9% 1,000 ML IV SCH (13:17)
[2023-01-02] MEDS ORDERED: SUCR1ORA6 GT (16:25)
[2023-01-02] MEDS: SUCRALFATE 1 G/10 ML UDC GT SCH ×2 (16:37→16:41)
== END 2023-01-02 18:03 | disposition home or self-care (01) | DRG 392 ==
LOC: ER 14:28 → TELE 17:50
PROVIDERS: ADMIT Nurse Practitioner Acute Care; ATTEND Nurse Practitioner Acute Care
PROC: 0DB68ZX Excision of Stomach, Via Natural or Artificial Opening Endoscopic, Diagnostic (ICD-10-PCS; principal; 2023-01-01)
DX: K21.9 Gastro-esophageal reflux disease without esophagitis (principal); E22.2 Syndrome of inappropriate secretion of antidiuretic hormone; E87.6 Hypokalemia; R10.13 Epigastric pain; I48.91 Unspecified atrial fibrillation; G89.4 Chronic pain syndrome; E86.1 Hypovolemia; E86.0 Dehydration; F32.A Depression, unspecified; F41.9 Anxiety disorder, unspecified; I10 Essential (primary) hypertension; K29.70 Gastritis, unspecified, without bleeding; F39 Unspecified mood [affective] disorder; M81.0 Age-related osteoporosis without current pathological fracture; M79.0 Rheumatism, unspecified; Z79.82 Long term (current) use of aspirin; F29 Unspecified psychosis not due to a substance or known physiological condition; T43.215A Adverse effect of selective serotonin and norepinephrine reuptake inhibitors, initial encounter; Y92.009 Unspecified place in unspecified non-institutional (private) residence as the place of occurrence of the external cause
CPT/HCPCS: 36415; 71045-TC; 78226; 80048-TC; 80053-TC; 80076-TC; 81001; 83690-TC; 83735-TC; 84100-TC; 84484-TC; 85025-TC; A4223; A9537; C9113; G0378; J2060; J2270; J2405; J2704; J3010; J3480; J3490; J7030; J7040; Q0177

== ENCOUNTER 2024-07-11 17:36 | Inpatient (IN) | payer BC ==
[~2024-07-11] VITALS: Ht 152.4 cm; Wt 77.3 kg
[~2024-07-11 17:36] MED LIST changes: -CHOL500052 PO; +ERGO500093 PO; -FISH1CAP16 PO; -IRON28TA4 PO; +ONDA8TAB65 PO; +RIFA300C4 PO; +SUCR1ORA6 GT; +TERI2.4P SQ
[2024-07-11 18:48] LABS: BASOPHILS # (AUTO) 0.1 K/uL (0.0-0.2); BASOPHILS % (AUTO) 0.4 % (0.0-2.0); EOSINOPHILS % (AUTO) 0.1 % (0.0-6.0); HEMATOCRIT 37 % (33-45); HEMOGLOBIN 11.9 g/dL (11.5-14.8); LYMPHOCYTES # (AUTO) 0.9 K/uL (0.8-4.8); LYMPHOCYTES % (AUTO) 3.8 % (20.0-44.0); MEAN CORPUSCULAR HEMOGLOBIN 28 PG (26.0-33.0); MEAN CORPUSCULAR HGB CONC 32 g/dl (31.0-36.0); MEAN CORPUSCULAR VOLUME 86 fL (82-100); MONOCYTES # (AUTO) 1.7 K/uL (0.1-1.30); MONOCYTES % (AUTO) 7.4 % (2.0-12.0); NEUTROPHILS # (AUTO) 20.1 K/uL (1.8-8.9); NEUTROPHILS % (AUTO) 88.3 % (43.0-81.0); PLATELET COUNT (AUTO) 274 K/uL (150-450); RED BLOOD CELL COUNT(AUTO) 4.32 MIL/uL (4.0-5.2); RED CELL DISTRIBUTION WIDTH 15.3 % (11.5-15.0); WHITE BLOOD COUNT (AUTO) 22.8 K/uL (4.3-11.0)
[2024-07-11 18:59] LABS: CALCIUM, SERUM 8.9 mg/dL (8.5-10.1); CARBON DIOXIDE 24 mmol/L (21-32); CHLORIDE 84 mmol/L (98-107); CREATININE 3.9 mg/dL (0.6-1.3); GLUCOSE 108 mg/dL (74-106); SODIUM SERUM 122 mmol/L (136-145); UREA NITROGEN, BLOOD 79 mg/dL (7-18)
[2024-07-11 19:03] LABS: ALANINE AMINOTRANSFERASE 17 U/L (12-78); ALBUMIN 2.9 g/dL (3.4-5.0); ALKALINE PHOSPHATASE 97 U/L (46-116); ASPARTATE AMINOTRANSFERASE 29 U/L (15-37); BILIRUBIN,DIRECT 0.3 mg/dL (0.0-0.2); BILIRUBIN,TOTAL 0.8 mg/dL (0.2-1.0); LIPASE 34 U/L (16-77)
[2024-07-11 19:09] LABS: POTASSIUM 2.8 mmol/L (3.5-5.1)
[2024-07-11] MEDS ORDERED: ENOXAPARIN SODIUM 60 MG/0.6 ML DISP.SYRIN SQ ONE ×2 (19:30→20:03)
[2024-07-11] MEDS: IV NS 0.9% 1,000 ML BAG IV ONE (19:58)
[2024-07-11] MEDS: POTASSIUM CL. PREMIX PERIPHER. 50 ML IV SCH (19:58)
[2024-07-11] MEDS: POTASSIUM CHLORIDE 20 MEQ TAB.PRT.SR PO ONE (19:58)
[2024-07-11] MEDS ORDERED: ENOXAPARIN SODIUM 30 MG/0.3 ML DISP.SYRIN ONE (20:14)
[2024-07-11] MEDS: ENOXAPARIN SODIUM 30 MG/0.3 ML DISP.SYRIN IV ONE (20:21)
[2024-07-11] MEDS ORDERED: Z GUARD REMEDY 4 OZ OINT TP PRN (20:30)
[2024-07-11] MEDS ORDERED: MAG HYDROX/AL HYDROX/SIMETH 30 ML UDC PO PRN (20:30)
[2024-07-11] MEDS ORDERED: MAGNESIUM HYDROXIDE 30 ML UDC PO PRN (20:30)
[2024-07-11] MEDS ORDERED: ALPRAZOLAM 0.25 MG TABLET PO PRN (20:30)
[2024-07-11] MEDS ORDERED: ONDANSETRON HCL/PF 4 MG/2 ML VIAL IVP PRN (20:30)
[2024-07-11] MEDS ORDERED: POLYVINYL ALCOHOL 15 ML BOTTLE EACHEYE PRN (21:00)
[2024-07-11 21:33] LABS: APPEARANCE,URINE CLEAR (CLEAR); BILIRUBIN,URINE NEGATIVE (NEGATIVE); BLOOD, URINE 2+ Ery/uL (NEGATIVE); COLOR,URINE YELLOW (YELLOW); KETONES,URINE NEGATIVE (NEGATIVE); LEUKOCYTE ESTERASE ,URINE 2+ (NEGATIVE); NITRITE, URINE NEGATIVE (NEGATIVE); PH,URINE 5.5 (5.0-8.0); PROTEIN,URINE 2+ mg/dl (NEGATIVE); UGLUCOSE NEGATIVE (NEGATIVE); UROBILINOGEN,URINE 0.2 EU/dL (0.2)
[2024-07-11 22:04] LABS: WBC,URINE 21-50 /HPF (0-3)
[2024-07-11 22:06] LABS: ADD URINE CULTURE YES; BACTERIA,URINE 4+ /HPF (None Seen); RBC,URINE 21-50 /HPF (0-2); SQUAMOUS EPITHELIAL CELL,UR 21-50 /HPF (None Seen)
[2024-07-11 22:07] LABS: COARSE GRANULAR CASTS,URINE Few /LPF (None Seen)
[2024-07-11] MEDS: CEFTRIAXONE 1 G in IV D5W 50 ML IV SCH (23:15)
[2024-07-12] VITALS (7 sets, daily range): BP systolic 83–118; BP diastolic 44–85; TEMP 97.5–98.8; O2SAT 91–100
[2024-07-12] MEDS: MONTELUKAST SODIUM (10MG) 10 MG TABLET PO SCH
[2024-07-12] MEDS: SUCRALFATE 1 G/10 ML UDC GT SCH
[2024-07-12] MEDS: LACTULOSE 10 G/15 ML UDC (PYXIS) PO ONE (00:01)
[2024-07-12] MEDS ORDERED: VANCOMYCIN 500 MG VIAL ONE (00:18)
[2024-07-12] MEDS: VANCOMYCIN HCL 1.25 GM in IV D5W 250 ML IV ONE (00:27)
[2024-07-12] MEDS: IV NS 0.9% 1,000 ML IV PRN ×2 (01:09→18:29)
[2024-07-12 06:54] LABS: BASOPHILS % (AUTO) 0.1 % (0.0-2.0); EOSINOPHILS # (AUTO) 0.1 K/uL (0.0-0.7); EOSINOPHILS % (AUTO) 0.6 % (0.0-6.0); HEMATOCRIT 32 % (33-45); HEMOGLOBIN 10.6 g/dL (11.5-14.8); MEAN CORPUSCULAR HEMOGLOBIN 28 PG (26.0-33.0); MEAN CORPUSCULAR HGB CONC 33 g/dl (31.0-36.0); MEAN CORPUSCULAR VOLUME 86 fL (82-100); MONOCYTES # (AUTO) 0.9 K/uL (0.1-1.30); MONOCYTES % (AUTO) 5.2 % (2.0-12.0); NEUTROPHILS # (AUTO) 14.5 K/uL (1.8-8.9); NEUTROPHILS % (AUTO) 88.1 % (43.0-81.0); PLATELET COUNT (AUTO) 260 K/uL (150-450); RED BLOOD CELL COUNT(AUTO) 3.77 MIL/uL (4.0-5.2); RED CELL DISTRIBUTION WIDTH 15.4 % (11.5-15.0); WHITE BLOOD COUNT (AUTO) 16.4 K/uL (4.3-11.0)
[2024-07-12 08:24] LABS: ALBUMIN 2.5 g/dL (3.4-5.0); BILIRUBIN,TOTAL 0.7 mg/dL (0.2-1.0); CALCIUM, SERUM 8.5 mg/dL (8.5-10.1); CREATININE 2.9 mg/dL (0.6-1.3); PHOSPHORUS 5.1 mg/dL (2.5-4.9); TOTAL PROTEIN, SERUM 6.5 g/dL (6.4-8.2)
[2024-07-12 08:33] LABS: POTASSIUM 3.8 mmol/L (3.5-5.1)
[2024-07-12] MEDS: POLYETHYLENE GLYCOL 3350 17 GM POWD.PACK PO SCH (09:35)
[2024-07-12] MEDS: DOCUSATE SODIUM 100 MG CAPSULE PO SCH (09:36)
[2024-07-12] MEDS: ASPIRIN 81 MG TAB.CHEW PO SCH (09:38)
[2024-07-12] MEDS: DULOXETINE HCL 30 MG CAPSULE.DR PO SCH (09:38)
[2024-07-12] MEDS: LACTOBACILLUS RHAMNOSUS GG 1 EACH CAP.SPRINK PO SCH (09:39)
[2024-07-12] MEDS: RIFAMPIN 300 MG CAPSULE PO SCH (09:39)
[2024-07-12] MEDS: PREGABALIN 25 MG CAPSULE PO SCH (09:43)
[2024-07-12] MEDS: VANCOMYCIN 750 MG in IV D5W 250 ML IV ONE (09:46)
[2024-07-12] MEDS: PANTOPRAZOLE 40 MG TABLET.DR PO SCH (09:46)
[2024-07-12] MEDS ORDERED: METHADONE HCL 5 MG TABLET PO SCH (13:00)
[2024-07-12] MEDS: METHADONE 5 MG PO SCH (13:15)
[2024-07-12 16:53] LABS: CALCIUM, SERUM 7.8 mg/dL (8.5-10.1); CREATININE 2.7 mg/dL (0.6-1.3); POTASSIUM 3.9 mmol/L (3.5-5.1)
[2024-07-12] MEDS: SUCRALFATE 1 G TABLET PO SCH (16:55)
[2024-07-12] MEDS: MULTIVITAMINS,THERAGRAN 1 UDTAB TABLET PO SCH (17:06)
[2024-07-12] MEDS: SUCRALFATE 1 G/10 ML UDC PO SCH (21:10)
[2024-07-13] VITALS: BP 96/52; TEMP 98.2; O2SAT 100
[2024-07-13 04:00] VITALS: BP 115/86; TEMP 98.1; O2SAT 98
[2024-07-13 07:30] VITALS: BP 93/56; TEMP 98.8; O2SAT 96
[2024-07-13 08:18] LABS: ALBUMIN 2.1 g/dL (3.4-5.0); BILIRUBIN,TOTAL 1.1 mg/dL (0.2-1.0); CALCIUM, SERUM 8.5 mg/dL (8.5-10.1); CREATININE 2.1 mg/dL (0.6-1.3); MAGNESIUM 1.8 mg/dL (1.8-2.4); POTASSIUM 3.2 mmol/L (3.5-5.1); TOTAL PROTEIN, SERUM 6.1 g/dL (6.4-8.2)
[2024-07-13 08:20] LABS: BASOPHILS % (AUTO) 0.2 % (0.0-2.0); EOSINOPHILS # (AUTO) 0.2 K/uL (0.0-0.7); EOSINOPHILS % (AUTO) 1.3 % (0.0-6.0); HEMATOCRIT 30 % (33-45); HEMOGLOBIN 9.9 g/dL (11.5-14.8); LYMPHOCYTES # (AUTO) 1.1 K/uL (0.8-4.8); LYMPHOCYTES % (AUTO) 7.8 % (20.0-44.0); MEAN CORPUSCULAR HEMOGLOBIN 28 PG (26.0-33.0); MEAN CORPUSCULAR HGB CONC 33 g/dl (31.0-36.0); MEAN CORPUSCULAR VOLUME 86 fL (82-100); MONOCYTES # (AUTO) 0.9 K/uL (0.1-1.30); MONOCYTES % (AUTO) 5.8 % (2.0-12.0); NEUTROPHILS # (AUTO) 12.4 K/uL (1.8-8.9); NEUTROPHILS % (AUTO) 84.9 % (43.0-81.0); PLATELET COUNT (AUTO) 282 K/uL (150-450); RED CELL DISTRIBUTION WIDTH 15.3 % (11.5-15.0); WHITE BLOOD COUNT (AUTO) 14.6 K/uL (4.3-11.0)
[2024-07-13 09:06] LABS: THYROID STIMULATING HORMONE 0.28 uIU/mL (0.358-3.74); URIC ACID 5.7 mg/dL (2.6-7.2)
[2024-07-13] MEDS: POTASSIUM CHLORIDE 10 MEQ TABLET.SA PO ONE (10:21)
[2024-07-13] MEDS: SUCRALFATE 1 G TABLET PO SCH (12:08)
[2024-07-13 16:00] VITALS: BP 132/62; TEMP 99; O2SAT 99
[2024-07-13 20:00] VITALS: BP 120/70; TEMP 97.9; O2SAT 94
[2024-07-13] MEDS: VANCOMYCIN 750 MG in IV D5W 250 ML IV SCH (21:22)
[2024-07-14 07:01] LABS: CALCIUM, SERUM 8.7 mg/dL (8.5-10.1); CREATININE 1.3 mg/dL (0.6-1.3); POTASSIUM 3.5 mmol/L (3.5-5.1)
[2024-07-14 07:11] LABS: PTH, INTACT 46 pg/mL (15-65)
[2024-07-14 07:14] LABS: MAGNESIUM 1.8 mg/dL (1.8-2.4); PHOSPHORUS 2.8 mg/dL (2.5-4.9)
[2024-07-14 07:24] LABS: THYROID STIMULATING HORMONE 0.25 uIU/mL (0.358-3.74); URIC ACID 3.1 mg/dL (2.6-7.2)
[2024-07-14 07:30] VITALS: BP 96/64; TEMP 98.4; O2SAT 100
[2024-07-14] MEDS ORDERED: VANCOMYCIN 750 MG in IV D5W 250 ML IV SCH ×2 (08:00→13:00)
[2024-07-14 08:09] LABS: BASOPHILS % (AUTO) 0.2 % (0.0-2.0); EOSINOPHILS # (AUTO) 0.2 K/uL (0.0-0.7); EOSINOPHILS % (AUTO) 1.4 % (0.0-6.0); HEMATOCRIT 30 % (33-45); HEMOGLOBIN 9.9 g/dL (11.5-14.8); LYMPHOCYTES # (AUTO) 0.8 K/uL (0.8-4.8); LYMPHOCYTES % (AUTO) 5.9 % (20.0-44.0); MEAN CORPUSCULAR HEMOGLOBIN 29 PG (26.0-33.0); MEAN CORPUSCULAR HGB CONC 33 g/dl (31.0-36.0); MEAN CORPUSCULAR VOLUME 86 fL (82-100); MONOCYTES # (AUTO) 1.1 K/uL (0.1-1.30); MONOCYTES % (AUTO) 7.9 % (2.0-12.0); NEUTROPHILS # (AUTO) 12.3 K/uL (1.8-8.9); NEUTROPHILS % (AUTO) 84.6 % (43.0-81.0); PLATELET COUNT (AUTO) 308 K/uL (150-450); RED BLOOD CELL COUNT(AUTO) 3.49 MIL/uL (4.0-5.2); RED CELL DISTRIBUTION WIDTH 15.1 % (11.5-15.0); WHITE BLOOD COUNT (AUTO) 14.5 K/uL (4.3-11.0)
[2024-07-14] MEDS: KEY,NONCONTROL,TO KEEP IN PYXI 1 EA MC ONE ×9 (09:05→19:59)
[2024-07-14 10:23] VITALS: BP 96/64; TEMP 98.4; O2SAT 100
[2024-07-14] MEDS: ACETAMINOPHEN 325 MG TABLET PO PRN (12:06)
[2024-07-14] MEDS: NA PHOS,M-B/NA PHOS,DI-BA 1 EA ENEMA RC ONE (15:58)
[2024-07-14 16:00] VITALS: BP 122/98; TEMP 98.1; O2SAT 95
[2024-07-14 16:27] VITALS: BP 122/98; TEMP 98.1; O2SAT 95
[2024-07-14] MEDS: CEFTRIAXONE 1GM BAG (ER ONLY) 50 ML IV ONE (19:57)
[2024-07-14] MEDS: VANCOMYCIN 1 GM /D5W 250 ML PB IV ONE (19:58)
[2024-07-14] MEDS: LACTULOSE 10 G/15 ML UDC (PYXIS) ONE ×2 (19:58)
[2024-07-14 20:00] VITALS: BP 113/61; TEMP 98.1; O2SAT 96
[2024-07-14] MEDS: VANCOMYCIN 750 MG in IV D5W 250 ML IV SCH (20:15)
[2024-07-14 20:25] VITALS: O2SAT 98
[2024-07-14] MEDS: SENNOSIDES/DOCUSATE SODIUM 1 TAB TABLET PO SCH (22:46)
[2024-07-14] MEDS: ZOLPIDEM TARTRATE 5 MG TABLET PO PRN (23:36)
[2024-07-15 07:11] LABS: ALBUMIN 2.1 g/dL (3.4-5.0); BILIRUBIN,TOTAL 1.2 mg/dL (0.2-1.0); CALCIUM, SERUM 8.8 mg/dL (8.5-10.1); CREATININE 0.9 mg/dL (0.6-1.3); MAGNESIUM 1.4 mg/dL (1.8-2.4); PHOSPHORUS 3.1 mg/dL (2.5-4.9); POTASSIUM 3.1 mmol/L (3.5-5.1); TOTAL PROTEIN, SERUM 6.7 g/dL (6.4-8.2)
[2024-07-15 07:37] LABS: BASOPHILS % (AUTO) 0.1 % (0.0-2.0); EOSINOPHILS # (AUTO) 0.2 K/uL (0.0-0.7); EOSINOPHILS % (AUTO) 1.2 % (0.0-6.0); HEMATOCRIT 32 % (33-45); HEMOGLOBIN 10.5 g/dL (11.5-14.8); LYMPHOCYTES # (AUTO) 0.9 K/uL (0.8-4.8); LYMPHOCYTES % (AUTO) 5.6 % (20.0-44.0); MEAN CORPUSCULAR HEMOGLOBIN 28 PG (26.0-33.0); MEAN CORPUSCULAR HGB CONC 33 g/dl (31.0-36.0); MEAN CORPUSCULAR VOLUME 86 fL (82-100); MONOCYTES # (AUTO) 1.3 K/uL (0.1-1.30); MONOCYTES % (AUTO) 8.4 % (2.0-12.0); NEUTROPHILS # (AUTO) 13.1 K/uL (1.8-8.9); NEUTROPHILS % (AUTO) 84.7 % (43.0-81.0); PLATELET COUNT (AUTO) 332 K/uL (150-450); RED CELL DISTRIBUTION WIDTH 15.1 % (11.5-15.0); WHITE BLOOD COUNT (AUTO) 15.4 K/uL (4.3-11.0)
[2024-07-15] MEDS ORDERED: KEY,NONCONTROL,TO KEEP IN PYXI 1 EA MC ONE (08:29)
[2024-07-15] MEDS ORDERED: NA PHOS,M-B/NA PHOS,DI-BA 1 EA ENEMA RC PRN (09:00)
[2024-07-15] MEDS ORDERED: POTASSIUM CHLORIDE 20 MEQ TAB.PRT.SR PO SCH (10:00)
[2024-07-15] MEDS ORDERED: MAGNESIUM OXIDE 400 MG TABLET PO SCH (10:00)
[2024-07-15] MEDS ORDERED: POTASSIUM CHLORIDE 20 MEQ TAB.PRT.SR PO ONE (10:00)
[2024-07-17] MEDS ORDERED: ERGOCALCIFEROL (VITAMIN D 2) 50,000 UNIT CAPSULE PO SCH (09:00)
== END 2024-07-15 08:30 | DRG 871 ==
LOC: ER 17:41 → TELE 21:51 → MED 07-13 15:37
PROVIDERS: ADMIT Nurse Practitioner Acute Care; ATTEND Nurse Practitioner Acute Care
DX: A41.50 Gram-negative sepsis, unspecified (principal); I21.A1 Myocardial infarction type 2; N17.0 Acute kidney failure with tubular necrosis; E44.0 Moderate protein-calorie malnutrition; E87.1 Hypo-osmolality and hyponatremia; L03.116 Cellulitis of left lower limb; E87.20 Acidosis, unspecified; N39.0 Urinary tract infection, site not specified; M48.54XA Collapsed vertebra, not elsewhere classified, thoracic region, initial encounter for fracture; A41.9 Sepsis, unspecified organism; E86.0 Dehydration; E87.6 Hypokalemia; G89.4 Chronic pain syndrome; Z79.891 Long term (current) use of opiate analgesic; H04.123 Dry eye syndrome of bilateral lacrimal glands; K29.70 Gastritis, unspecified, without bleeding; M81.0 Age-related osteoporosis without current pathological fracture; E86.1 Hypovolemia; K59.00 Constipation, unspecified; D64.9 Anemia, unspecified; E88.09 Other disorders of plasma-protein metabolism, not elsewhere classified; M89.8X9 Other specified disorders of bone, unspecified site; Z79.82 Long term (current) use of aspirin; K57.30 Diverticulosis of large intestine without perforation or abscess without bleeding; I44.7 Left bundle-branch block, unspecified; I48.91 Unspecified atrial fibrillation; M54.50 Low back pain, unspecified; I12.9 Hypertensive chronic kidney disease with stage 1 through stage 4 chronic kidney disease, or unspecified chronic kidney disease; N18.9 Chronic kidney disease, unspecified
CPT/HCPCS: 36415; 71045-TC; 76770-TC; 80048-TC; 80053-TC; 80061-TC; 80076-TC; 81001; 82550-TC; 82553; 83605-TC; 83690-TC; 83735-TC; 83970; 84100-TC; 84155; 84165; 84443-TC; 84484-TC; 84550-TC; 85025-TC; 87040-TC; 87086-TC; 92526; 92611-TC; 93307-TC; 97110-TC; 97116-TC; 97530-TC; 97535-TC; A4223; G0378; J0696; J1650; J3370; J3371; J3480; J7030; J7050; J7060